=== PATIENT | female | born 1965 | race American Indian/Alaskan Native ===

== ENCOUNTER 2024-07-25 07:41 | Day surgery (SDC) | payer OTHER, SELFPAY ==
--- NOTE | 2024-07-25 | PATH_ITS ---
[facility] Accession Number: [id number] No. of containers..01 Tissue . 01 Material submitted: . colon - DESCENDING POLYP . 01 Diagnosis: DESCENDING POLYP: Tubular adenoma. [facility] 07/29/2024 1147 Local . 01 Electronically signed: . Justyn Olguin MD, Pathologist NPI- [id number] . 01 Gross description: . Received in formalin with two identifiers and descending colon polyp, is a single draper soft tissue fragment 0.2 cm in greatest dimension. Submitted in cassette A1. ([id number]) /ISHA 07/29/2024 1147 Local . 01 Pathologist provided ICD-10: D12.4 . 01 CPT . 157888 Specimen Comment: A courtesy copy of this report has been sent to [facility]ology Performed at: [address] [facility] [id number] MD Justyn Olguin MD Phone: [phone]
[2024-07-25 08:02] VITALS: BP 132/88; PULSE 103; RESP 17; TEMP 36.1; O2SAT 97
[2024-07-25] MEDS: LACTATED RINGERS 1,000 ML 42 ML IV (08:08)
--- NOTE | 2024-07-25 08:46 | P.HP_ITS ---
History of Present Illness History of Present Illness Date Patient Seen: 07/25/24 Time Patient Seen: 08:47 Chief complaint: Colonscopy Narrative: 59-year-old female personal history of polyps. No changes in bowel habits. [facility] Social History Smoking Status: Former smoker alcohol intake: current Meds Home Medications and Allergies Home Medications Medication Instructions Recorded Confirmed Type cholecalciferol (vitamin D3) 50 50 mcg PO DAILY 07/24/24 07/24/24 History mcg (2,000 unit) tablet (Vitamin D3) sertraline 100 mg tablet 150 mg PO DAILY 07/24/24 07/25/24 History Allergies Allergy/AdvReac Type Severity Reaction Status Date / Time No Known Drug Allergies Allergy Verified 07/25/24 07:57 Review of Systems Review of Systems ROS: Yes All systems reviewed with the patient and are negative except as otherwise documented Exam Vital Signs (past 8 hours): - 07/25/24 08:02 Temperature 96.9 F L Pulse Rate 103 H Respiratory Rate 17 Blood Pressure 132/88 Pulse Oximetry 97 Narrative Exam Narrative: Gen: NAD, sitting comfortably in bed, appears well HEENT: Sclera are anicteric, head is normocephalic and atraumatic, trachea is midline. CV: RRR, no JVD Resp: clear to auscultation bilaterally, equal chest wall movement bilaterally Abd: soft, nontender, normoactive bowel sounds Ext: no edema, full range of motion Neuro: Cranial nerves II-XII grossly intact, no focal deficits Skin: No erythema or ecchymosis Assessment & Plan Assessment and plan (1) Personal history of colonic polyps: Status: Acute Assessment & Plan narrative: Patient had polyps at colonoscopy in [place]. Patient presents for colonoscopy Risks, benefits, alternatives to colonoscopy explained, including but not limited to bowel perforation or other serious complication requiring surgery at less than 1 in 5000 colonoscopies, abdominal pain, cramping or bleeding and less than 1% of colonoscopies, and the chances that we find a diagnosis that would require further intervention of about 2%. Patient agrees to proceed. Time-Based Coding :: [TOTAL MINUTES] spent with patient and on the chart (including review of chart, obtaining history, exam, reviewing outside data, placing orders, documenting exam and treatment plan, and counseling patient) on [DATE]. 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
--- NOTE | 2024-07-25 09:14 | PM.OP.COLON ---
Operative Date/Time/Diagnoses Date of procedure: 07/25/24 Time of procedure: 09:14 Pre-op diagnosis: Personal history of polyps Post-op diagnosis: same Procedure & Clinicians Study performed: Colonoscopy with cold snare polypectomy descending colon polyp Same procedure as scheduled: Yes Indications: Personal history of polyps Surgeon: Nayan Gifford Procedure Notes SCOAP/Timeout: Performed Procedure in detail: Time-out was performed. Mac was induced. Patient was placed in left lateral decubitus position. The perineum was inspected without any gross abnormality. Lubricated pediatric colonoscope was inserted and advanced to the cecum. The terminal ileum was intubated. The colonoscope was withdrawn slowly inspecting the circumference of the colon. Sessile, benign-appearing polyp was noted in the descending colon. This was removed completely with cold snare polypectomy and retrieved. Very small polyps may have been missed, prep quality was adequate. Sigmoid diverticulosis was noted. Retroflexed view of the rectum showed small, non prolapsed nonbleeding internal hemorrhoids. The scope was withdrawn the patient was taken to PACU in good condition. Scope withdrawal time: 9 Findings: divertiulosis and polyp(s) Specimen(s): other (1. Descending colon polyp) Complications: none Impression: Benign-appearing polyp Post-procedure Recommendations: Colonoscopy in 5 years Plan for aftercare: home Follow up: as needed Disposition: PACU
[2024-07-25 09:16] VITALS: BP 89/57; PULSE 71; RESP 15; TEMP 36.4; O2SAT 97
[2024-07-25 09:21] VITALS: BP 89/60; PULSE 70; RESP 14; O2SAT 98
[2024-07-25 09:26] VITALS: BP 97/64; PULSE 71; RESP 15; O2SAT 98
[2024-07-25 09:31] VITALS: BP 108/76; PULSE 77; RESP 14; O2SAT 100
[2024-07-25 09:36] VITALS: BP 109/77; PULSE 71; RESP 14; O2SAT 98
== END 2024-07-25 09:55 | disposition home or self-care (01) ==
PROVIDERS: PCP Physician Assistant Medical; Referring Provider Surgery; Visit Provider Surgery
PROC: 0DJD8ZZ Inspection of Lower Intestinal Tract, Via Natural or Artificial Opening Endoscopic (ICD-10-PCS; CPT 45378; principal; 2024-07-25 08:45)
DX: Z12.11 Encounter for screening for malignant neoplasm of colon (principal); Z86.0100 Personal history of colon polyps, unspecified; K57.30 Diverticulosis of large intestine without perforation or abscess without bleeding; D12.4 Benign neoplasm of descending colon
CPT/HCPCS: 45385; J2704